=== PATIENT | male | born 1950 ===

== ENCOUNTER 2024-12-26 06:02 | Day surgery (SDC) | payer OTHER, SELFPAY ==
--- NOTE | 2024-12-18 16:15 | VNURNOTE ---
Patient is scheduled for an elective L KENNETH on 12/26/24 - he is a same day patient with Dr Snyder. Spoke with patient prior to surgery. Introduced role of [facility] Liaison. Patient reports that he lives with his in a MULTI story home.
There are 0 steps to enter and a flight of steps to the second floor.
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 He has a raised toilet seat, cane and rolling walker.
PCP is Dr Tim Thacker
Discussed [facility] joint protocol and post surgical plans.
Reviewed that he will have VN services initially and will then start outpatient PT.
Patient selects [facility] for his home care needs and will go to [facility] for outpatient PT. Scheduled TBD. Advised to schedule 12/31 or 01/01.
Patient is in agreement with plan and states that his will be home with him. Advised to bring RW with him day of surgery. Referral placed in [facility].
Plan: [facility] per [facility] joint protocol 12/26 then outpt PT TBD
--- NOTE | 2024-12-19 12:44 | CM ---
CM reviewed medical records. CM left message. Encouraged patient to call if needed.
[2024-12-26] VITALS (15 sets, daily range): BP systolic 84–133; BP diastolic 48–80; PULSE 72; O2SAT 97; BMI 25.4
[2024-12-26] MEDS: NORMOSOL-R/PLASMALYTE-A 1000 IV ×2 (07:17→11:47)
[2024-12-26] MEDS: CELEBREX 200 MG PO (07:17)
[2024-12-26] MEDS: TYLENOL 650 MG PO (07:17)
[2024-12-26 07:41] LABS: ALT (SGPT) 13 U/L (0-50); AST (SGOT) 15 U/L (17-59); Albumin 4.4 g/dl (3.5-5.0); Alkaline Phosphatase 65 U/L (38-126); Total Bilirubin 0.5 mg/dl (0.2-1.3)
[2024-12-26 08:50] LABS: Glycohemoglobin (HgbA1c) 5.3 % (4.0-5.6)
[2024-12-26] MEDS: DILAUDID 0.25 MG IV (09:29)
[2024-12-26] MEDS: ANCEF 5 IV (11:56)
[2024-12-26] MEDS: ProAmatine 5 MG PO (12:16)
== END 2024-12-26 15:00 | disposition home health service (06) ==
LOC: SDS 06:02
PROVIDERS: ATTENDING PHYSICIAN Orthopaedic Surgery; FAMILY PHYSICIAN Family Medicine
DX: M16.12 Unilateral primary osteoarthritis, left hip (principal)
CPT/HCPCS: 27130; C1713; C1776; 73502; 80076; 83036; 87070; 97116; 97162; 97530